=== PATIENT | male | born 1950 | race African-American/Black ===

== ENCOUNTER → 2019-09-22 | Outpatient (CLI) | payer BC, MEDICARE ==
--- NOTE | 2019-09-22 14:03 | RAD ---
Ultrasound the abdomen limited. HISTORY: Abdominal wall abscess. Ultrasound was used to evaluate the abdominal wall. There is localized soft tissue swelling and edema in the superficial soft tissues. The abnormal superficial soft tissue measures 10 of 15 cm transverse diameter by 11 cm craniocaudal diameter by 1.7 cm in thickness. A loculated abscess is not identified. IMPRESSION: 1. Edema and soft tissue swelling in the superficial abdominal wall, phlegmon or poorly defined abscess or hemorrhage could've this pattern. Electronically signed by: Hal Phillips MD (09/22/2019 2:00 PM) [facility]
== END ==
LOC: US 13:19
PROVIDERS: ATTEND Family Medicine
DX: R19.09 Other intra-abdominal and pelvic swelling, mass and lump (principal); R97.21 Rising PSA following treatment for malignant neoplasm of prostate; R60.1 Generalized edema
CPT/HCPCS: 76705